=== PATIENT | male | born 1970 | race Caucasian/White ===

== ENCOUNTER 2017-02-28 20:54 | Emergency (ER) | payer BC ==
--- NOTE | ~2017-02-28 | ER ---
PATIENT'S NAME: YANI AGUILERA [facility] AGE: 46 Y [address] ROOM: [place] [id number] LOCATION: [facility] ADMIT DATE: 02/28/2017 ER/Outpatient Report DISCHARGE DATE: 02/28/2017 FAMILY PHYSICIAN: Jorge Marion MD ATTENDING PHYSICIAN: Nona Nunez HISTORY OF PRESENT ILLNESS: This is a 46-year-old male, who presents today with upper abdominal pain, band- like on his upper abdomen that is currently a 5/10. He says this is an ongoing for about 12 hours now. The patient says it was not particularly worse after eating. He had multiple like 6 episodes of diarrhea and 1 episode of vomiting before coming to the ER. After vomiting, he says he feels a lot better. He has been belching all day. He currently rates his pain at 5/10, but says when it was at its worst it was 10/10. Denies any nausea at this time. No urinary symptoms. He has not taken anything for pain except homeopathic things like vanilla and spinach seeds. PAST MEDICAL HISTORY: Includes umu-cfqilii-lmbivsyuk diabetes recently diagnosed in December, hypercholesterolemia and obesity. PAST SURGICAL HISTORY: Cleft cyst repair. SOCIAL HISTORY: He chews 2 cans per week. Does not drink or use any drugs. MEDICATIONS: Please see med list. ALLERGIES: NONE. REVIEW OF SYSTEMS: Reviewed by me and negative with the exception of those discussed in the HPI. PHYSICAL EXAMINATION: VITAL SIGNS: The patient is 6 feet tall. He is 106.9 kilos. Blood pressure is 138/81, heart rate 77, respiratory rate 16, temperature is 97.6 and saturating 98% on room air. GENERAL: The patient is well appearing and speaking to me in full sentences. He is not pale or diaphoretic. He does not appear jaundiced. Looks very comfortable and nontoxic. NEUROLOGIC: He is alert and oriented x4. Moves all extremities. GCS is 15. HEART: Regular rate and rhythm. A little bit hypertensive at 138/81 at this PATIENT'S NAME: YANI AGUILERA [facility] AGE: 46 Y [address] ROOM: [place] [address] LOCATION: [facility] ADMIT DATE: 02/28/2017 ER/Outpatient Report DISCHARGE DATE: 02/28/2017 FAMILY PHYSICIAN: Jorge Marion MD ATTENDING PHYSICIAN: Nona Nunez. LUNGS: Lung sounds sound clear. No labored breathing, tachypnea or accessory muscle use. ABDOMEN: He is mildly obese. He has like an obese pannus, but completely nontender. No epigastric tenderness. No right upper quadrant tenderness. Negative Lnogoria sign. No rebound or guarding. No rigidity. No peritoneal signs. Normoactive bowel sounds. SKIN: Warm, dry, intact. LABORATORY DATA: We checked a few labs. We checked the urine which was a clean catch 25 leuks, nitrites negative, no blood. The patient is asymptomatic. No urine symptoms. CBC shows a white count of 12, H and H is 16.4/47.7, and platelets are 204. No bandemia. CMS: Sodium 143, potassium 4.1, chloride 106, CO2 30, anion gap 11.1, glucose 122, BUN 15, creatinine 1, total bilirubin is 0.5, alkaline phosphatase is 42, AST 18, ALT 77, GFR greater than 60, lipase is 115. EMERGENCY DEPARTMENT COURSE: I went back to re-evaluate the patient to tell him his results. The patient says that he came in because he does not have any pain and has not had any pain after he vomited really. He says that he feels like it has been gas because he was belching a lot earlier today and now that he has vomited and he feels a lot better. I reassured him that his lab work was pretty fine. He is completely nontender on exam so. I think he can be discharged home. I gave him a script for Ric. Follow up appropriately with his primary care doctor. IMPRESSION: Upper abdominal pain. MD ALESSANDRA BROWNLEE/modl /[id number] d: 03/01/17 0455 t: 03/02/17 0028, OUTPATIENT REPORT
[2017-02-28 21:14] LABS: BILIRUBIN URINE NEGATIVE (NEGATIVE); BLOOD URINE NEGATIVE /UL (NEGATIVE); COLOR URINE YELLOW (YELLOW); GLUCOSE URINE NEGATIVE (NEGATIVE); KETONE URINE NEGATIVE (NEGATIVE); LEUKOCYTES URINE 25 /UL (NEGATIVE); NITRITE URINE NEGATIVE (NEGATIVE); PROTEIN URINE 15 mg/dL (NEGATIVE); SPEC GRAVITY URINE 1.025 (1.003-1.035); TURBIDITY URINE CLEAR (CLEAR); UROBILINOGEN URINE NORMAL (NORMAL)
[2017-02-28 21:24] LABS: BACTERIA URINE NEGATIVE (NEGATIVE); CRYSTALS URINE CALCIUM OXALATE (NEGATIVE); EPITHELIAL URINE NEGATIVE #/HPF (NEGATIVE); MUCUS URINE 2+ (NEGATIVE); RBC URINE NEGATIVE #/HPF (NEGATIVE); WBC URINE 0-2 #/HPF (NEGATIVE)
[2017-02-28 21:25] LABS: BASOPHIL % 0.2 %; EOSINOPHIL # 0.3 K/uL (0.0-0.5); EOSINOPHIL % 2.2 %; HEMATOCRIT 47.7 % (37.0-53.0); HEMOGLOBIN 16.4 g/dL (12.0-17.0); IMMATURE GRANULOCYTE % 0.2 %; LYMPHOCYTE # 2.5 K/uL (0.8-4.0); LYMPHOCYTE % 20.5 %; MCH 30.2 pg (27.0-34.0); MCHC 34.4 gm/dL (32.0-36.5); MCV 87.8 fl (83.0-98.0); MONOCYTE # 0.6 K/uL (0.0-1.0); MONOCYTE % 5.3 %; MPV 8.9 fl (9.4-12.4); NEUTROPHIL # (ANC) 8.6 K/uL (1.4-9.0); NEUTROPHIL % 71.6 %; NRBC % 0 /100WBC (0-0.00); PLATELET COUNT 204 K/uL (150-450); RBC 5.43 M/uL (4.00-6.00); RDW-CV 12.1 % (11.9-14.6)
[2017-02-28 21:41] LABS: ALBUMIN 4.1 gm/dL (3.5-5.0); ALK PHOS 42 IU/L (33-138); ALT 77 IU/L (12-78); ANION GAP 11.1 (10.0-19.0); AST 18 IU/L (10-40); BLOOD UREA NITROGEN 15 mg/dL (6-24); CALCIUM 8.2 mg/dL (8.5-10.5); CHLORIDE 106 mMol/L (96-110); CO2 30 mMol/L (22-32); ESTIMATED GFR (MDRD EQUATION) > 60; POTASSIUM 4.1 mMol/L (3.7-5.1); SODIUM 143 mMol/L (135-145); TOTAL BILIRUBIN 0.5 mg/dL (0.0-1.5); TOTAL PROTEIN 7.5 g/dL (6.0-8.4)
== END 2017-02-28 21:50 | disposition disaster alternative care site (69) ==
LOC: GMED 20:54
PROVIDERS: Emergency Medicine
DX: R10.10 Upper abdominal pain, unspecified (principal); E11.9 Type 2 diabetes mellitus without complications; E78.00 Pure hypercholesterolemia, unspecified; E66.9 Obesity, unspecified; F17.220 Nicotine dependence, chewing tobacco, uncomplicated; Z79.84 Long term (current) use of oral hypoglycemic drugs; Z79.899 Other long term (current) drug therapy